=== PATIENT | female | born 1975 | race Caucasian/White ===

== ENCOUNTER 2018-09-06 17:26 | Inpatient (IN) | payer MEDICAID ==
[~2018-09-06] VITALS: Ht 157.5 cm; Wt 75.0 kg
[2018-09-06] MEDS ORDERED: PREN-93 PO (17:43)
[2018-09-06 17:44] VITALS: BP 143/79; PULSE 106; RESP 18; Ht 157.5 cm; Wt 75.0 kg
--- NOTE | 2018-09-06 17:50 | TRIAGE ---
OB Triage Datetime Report Generated by CPN: 09/06/2018 17:50 Datetime: 09/06/2018 17:47 Vaginal Exam Dilatation (cms): 3.0 Effacement (%): 70 Station: -2 Exam By: SINTIA Vaginal Bleeding: None Cervix, Consistency: Soft Cervix, Position: Midposition Datetime: 09/06/2018 17:38 Assessment Type: Triage Maternal Assessment Level of Consciousness: Fully Conscious DTR's/Clonus: DTRs 2+; No Clonus Headache: Denies Blurred Vision: No Respiratory Effort: Unlabored; Regular Rhythm; Equal Expansion Breath Sounds, Left: Clear and Equal Breath Sounds, Right: Clear and Equal Nausea/Vomiting: Denies RUQ Epigastric Pain: Denies Lower Extremities Edema: None Degree: None Upper Extremities Edema: None Degree: None Facial Edema: None Fall Risk Assessment History of Falling: (0) No Secondary Diagnosis: (0) No Ambulatory Aid: (0) Bedrest/Nurse Assist IV Therapy: (0) No Gait: (0) Normal/Bedrest/Immobile Mental Status: (0) Oriented to Own Ability Fall Score: 0 Fall Risk Score Definition: No Risk: No action required Datetime: 09/06/2018 17:35 Time of Arrival: 09/06/2018 17:23 EGA: 39.0 Arrived By: Ambulatory Arrived From: Home Chief Complaint: PT. HERE FOR C/O UC'S Movement: Present Contractions: Irregular Rupture of Membranes: Denies Vaginal Bleeding: None Vaginal Discharge: Denies Recent Sexual Intercouse: Denies Abdominal Trauma: Not Applicable Patient Complaints: Contractions; Cramping; Back Pain Time Provider Notified: 09/06/2018 17:40 Provider Notified: HADADIAN Initial Plan: EFM/SVE Datetime: 09/06/2018 17:34 Labor Evaluation Monitor Mode: External Heart Rate Monitor Mode: External US
[2018-09-06] MEDS ORDERED: LACTATED RINGER'S 1,000 ML IV SCH (17:51)
[2018-09-06] MEDS ORDERED: METHYLERGONOVINE 0.2 MG INJ IM PRN ×2 (18:00→23:30)
[2018-09-06] MEDS ORDERED: MISOPROSTOL 200 MCG TAB PR PRN ×2 (18:00→23:30)
[2018-09-06] MEDS ORDERED: OXYTOCIN 30 UNITS/LR 500 ML IV SCH (18:00)
[2018-09-06] MEDS ORDERED: IBUPROFEN 600 MG TAB PO PRN (18:00)
[2018-09-06] MEDS ORDERED: CARBOPROST 250 MCG INJ IM PRN ×2 (18:00→23:30)
[2018-09-06] MEDS ORDERED: OXYTOCIN 30 UNITS/LR 500 ML IV PRN ×2 (18:00→23:30)
[2018-09-06] MEDS ORDERED: LIDOCAINE 1% (MPF) 30 ML INJ INJ PRN (18:00)
[2018-09-06] MEDS ORDERED: BUTORPHANOL 2 MG INJ IV PRN (18:00)
--- NOTE | 2018-09-06 20:09 | HP ---
Date/Time of Note Date/Time of Note DATE: 09/06/18 TIME: 20:07 OB - History Hx of Present Free Text/Dictation 43 years old with single intrauterine at 39 weeks with a MARCIA of 11/11/2018 complaining of uterine contractions. She states good movement. She denies nausea, vomiting, shortness of breath, chest pain, headache, visual changes, vaginal bleeding or LOF. Chief Complaint: Uterine contractions Estimated Due Date: November 11, 2018 : 6 Para: 3 Spontaneous : 2 Therapeutic : 0 Care: Good Care Ultrasounds: Normal mid trimester US Obstetrical Complications: None Medical Complications: None Past Family/Social History * Past Medical, Surgical, Family and Obstetric Histories reviewed from [facility]. Blood Type: O+ Rubella: immune RPR/VDRL: Negative GBS Status: Negative HBsAG: Negative OB Admission Exam Vital Signs Vital Signs Vital Signs Date Temp Pulse Resp B/P (MAP) Pulse Ox O2 O2 Flow FiO2 Time Delivery Rate 09/06/18 97.7 106 18 143/79 Room Air 17:44 (100) Physical Exam HEENT: WNL Heart: Rhythm Normal Lungs: Clear Abdomen: WNL Extremities: Normal Cervical Dilatation: 4cm Effacement: 75% Station: -2 Membranes: Intact Heart Rate: 130's Accelerations: Accelerations Present Decelerations: No Decelerations Varibility: Moderate Contractions on Admission: < 5 Minutes Apart Intensity: Moderate Last 72 hours Lab Results CBC & BMP 09/06/18 18:35 OB Assessment/Plan Other plan: 43-year-old 6 para 3023 at 29 weeks in active labor - FHR: No sign of metabolic acidosis- Category I - Continuous EFM, toco - CBC, blood type and screen - Analgesia options with R/B/A discussed in detail with patient - Epidural per patient request - Please see the orders - O+/Rubella: Immune - GBS: Negative Admission, procedures, expectations, risks and possible complications have been discussed in detail with the patient. Risk of vaginal delivery including but not limited to bleeding, infection, cervical laceration, placental retention, injury to fetus, blood transfusion, blood transfusion related infection, risk of anesthesia, adhesion, cervical laceration, episiotomy/laceration, possible ce sarean delivery with risk of bleeding, infection, injury to other organs (bowel, bladder, ureter, vessels, nerves), injury to fetus, blood transfusion, blood transfusion related infection, risk of anesthesia, scar and hernia formation, needs for future , removal of uterus or any other indicated surgery discussed with the patient. She expressed understanding and repeats the risks. All of her questions were answered. She signed the informed consent. PHYSICIAN'S VERIFICATION OF INFORMED CONSENT The patient and her counseled regarding the procedure, its indications, risks, potential complications and alternatives and any questions were answered. Consent was obtained. PLANNED PROCEDURE/TREATMENT: Vaginal delivery, episiotomy, repair of laceration possible delivery SUZANNE AVINA Sep 06, 2018 20:09
--- NOTE | 2018-09-06 20:11 | LDN ---
Date/Time of Note Date/Time of Note DATE: 09/06/18 TIME: 20:09 Delivery Summary 43-year-old 0-3 at 39 weeks delivered a viable female over intact perineum. Nose and mouth suctioned. The rest of body delivered. Cord clamped and cut after stopping for sedation. Baby given to the nurse. Placenta delivered spontaneously and intact with three-vessel cord. Patient tolerated procedure well Time of delivery 19:54 Weight 3255 g - 7 pounds 3 ounces 7 at 1 minute and 9 at 5 minutes EBL 150 mm Weeks of Gestation 39 weeks Placenta Delivered: Spontaneously Meconium: none Episiotomy: No Estimated blood loss: 150 Sponge & Needle done & correct: Yes All needle counts correct: Yes Any foreign bodies felt in the: No Delivery Information Sex Sex: female Apgars 1 Minute: 7 5 Minute: 9 10 Minute: 10 Suctioning Nose & mouth suctioned at lori: Yes Umbilical Cord Umbilical cord with: 3 Vessels Cord presentations: no nuchal cord Cord Blood was obtained: Yes Mother & Baby Disposition Disposition Mom & Baby to Maternity; Good: Yes SUZANNE AVINA Sep 06, 2018 20:11
[2018-09-06] MEDS: OXYTOCIN 30 UNITS/LR 500 ML IV SCH (20:30)
[2018-09-06 22:50] VITALS: BP 144/62; PULSE 67
[2018-09-06 23:00] VITALS: BP 144/62; PULSE 67; RESP 18
[2018-09-06] MEDS: DEXTROSE 5%-LR 1,000 ML IV SCH (23:15)
[2018-09-06] MEDS: LACTATED RINGER'S 1,000 ML IV* SCH (23:15)
[2018-09-06 23:30] VITALS: BP 124/50; PULSE 72; RESP 18
[2018-09-06] MEDS ORDERED: DIBUCAINE 1% 30 GM OINT TOP PRN (23:30)
[2018-09-06] MEDS ORDERED: ONDANSETRON 4 MG INJ IV PRN (23:30)
[2018-09-06] MEDS ORDERED: BENZOCAINE 20% 56 ML SPRAY TOP PRN (23:30)
[2018-09-06] MEDS ORDERED: ACETAMINOPHEN 325 MG TAB PO PRN (23:30)
[2018-09-06] MEDS ORDERED: LANOLIN HPA 1 PKT TOP PRN (23:30)
[2018-09-06] MEDS ORDERED: OXYCODONE/ASPIRIN (4.88/325) TAB PO PRN (23:30)
[2018-09-06] MEDS ORDERED: WITCH HAZEL/GLYCERIN PAD PR PRN (23:30)
[2018-09-06] MEDS ORDERED: SENNA/DOCUSATE NA (8.6MG/50MG) TAB PO PRN (23:30)
[2018-09-06] MEDS ORDERED: ZOLPIDEM 5 MG TAB PO PRN (23:30)
[2018-09-06] MEDS ORDERED: DIPHENHYDRAMINE 50 MG INJ IV PRN (23:30)
[2018-09-06] MEDS: IBUPROFEN 600 MG TAB PO SCH (23:56)
[2018-09-07] MEDS: OXYTOCIN 30 UNITS/LR 500 ML IV SCH (00:26)
[2018-09-07 04:20] VITALS: BP 118/65; PULSE 69; RESP 16
[2018-09-07] MEDS: IBUPROFEN 600 MG TAB PO SCH ×3 (06:06→17:58)
[2018-09-07] MEDS: DEXTROSE 5%-LR 1,000 ML IV SCH ×2 (07:30→15:15)
[2018-09-07] MEDS: LACTATED RINGER'S 1,000 ML IV* SCH ×2 (07:30→15:15)
[2018-09-07 08:40] VITALS: BP 102/58; PULSE 66; RESP 18
[2018-09-07 12:03] VITALS: BP 103/56; PULSE 68; RESP 18
[2018-09-07 15:10] VITALS: BP 106/55; PULSE 84; RESP 16
--- NOTE | 2018-09-07 15:26 | PN ---
Date/Time of Note Date/Time of Note DATE: 09/07/18 TIME: 15:23 OB Subjective Subjective Subjective PPD# 1 Patient is doing well. She denies nausea, vomiting, shortness of breath, chest pain, headache. She has been ambulating without difficulty, tolerating regular diet. Pain is well controlled on current medications OB Objective Objective Objective Vital Signs Date Temp Pulse Resp B/P (MAP) Pulse Ox O2 O2 Flow FiO2 Time Delivery Rate 09/07/18 98.2 66 18 102/58 Room Air 08:40 (73) General: AAO X 3, comfortable, NAD, appropriate mood and affect. ABD: +BS. Soft, non-tender. Uterus 2 cm below umbilicus Flank: No CVA tenderness (B/L) LE: Mild edema. No clubbing, cyanosis, thigh or calf tenderness (B/L). Homans 'sign is negative Laboratory Tests Test 09/06/18 18:35 09/07/18 07:41 White Blood Count 11.3 10^3/ul 12.1 10^3/ul Red Blood Count 4.25 10^6/ul 3.77 10^6/ul Hemoglobin 12.9 g/dl 11.6 g/dl Hematocrit 39.2 % 35.1 % Mean Corpuscular Volume 92.2 fl 93.1 fl Mean Corpuscular Hemoglobin 30.4 pg 30.8 pg Mean Corpuscular Hemoglobin Concent 32.9 g/dl 33.0 g/dl Red Cell Distribution Width 14.9 % 15.1 % Platelet Count 212 10^3/UL 181 10^3/UL Mean Platelet Volume 12.1 fl 12.2 fl Immature Granulocytes % 0.700 % 0.700 % Neutrophils % 73.8 % 74.5 % Lymphocytes % 17.6 % 14.3 % Monocytes % 7.4 % 10.0 % Eosinophils % 0.2 % 0.3 % Basophils % 0.3 % 0.2 % Nucleated Red Blood Cells % 0.0 /100WBC 0.0 /100WBC Immature Granulocytes # 0.080 10^3/ul 0.080 10^3/ul Neutrophils # 8.4 10^3/ul 9.0 10^3/ul Lymphocytes # 2.0 10^3/ul 1.7 10^3/ul Monocytes # 0.8 10^3/ul 1.2 10^3/ul Eosinophils # 0.0 10^3/ul 0.0 10^3/ul Basophils # 0.0 10^3/ul 0.0 10^3/ul Nucleated Red Blood Cells # 0.0 10^3/ul 0.0 10^3/ul Prothrombin Time 12.5 Sec Prothrombin Time Ratio 1.0 INR International Normalized Ratio 0.92 Activated Partial Thromboplast Time 28.6 Sec Rapid Plasma Reagin NONREACTIVE Hepatitis B Surface Antigen NEGATIVE OB Assessment/Plan Other plan: 43-year-old s/p normal vaginal delivery at 39 weeks. PPD#1 - AF, VSS - Baby is doing well, at bed side. She is bonding well - Contraception methods with R/B/A/FR discussed - Continue care - Discharge home tomorrow - Rx and instruction given - Follow up in 2 and 6 weeks at clinic SUZANNE AVINA Sep 07, 2018 15:26
--- NOTE | 2018-09-07 15:27 | DS ---
Date/Time of Note Date/Time of Note DATE: 09/07/18 TIME: 15:26 Obstetrical Discharge Record Final Diagnosis Final Diagnosis: Term delivered Other Final Diagnosis 43-year-old s/p normal vaginal delivery at 39 weeks. PPD#1. She is ambulating and tolerating regular diet. She is voiding without difficulty. Pain is controlled on current medication. - AF, VSS - Baby is doing well, at bed side. She is bonding well - Contraception methods with R/B/A/FR discussed - Continue care - Discharge home tomorrow - Rx and instruction given - Follow up in 2 and 6 weeks at clinic Vaginal Delivery Obstetrical Delivery: Spontaneous Complications Augmentation: No Induction: No Condition on Discharge Physical Assessment Last Vitals: Vital Signs Date Temp Pulse Resp B/P (MAP) Pulse Ox O2 O2 Flow FiO2 Time Delivery Rate 09/07/18 98.2 66 18 102/58 Room Air 08:40 (73) Voiding: Yes Bowel Movement: Yes Breast: Soft, non-tender Fundus: Firm Calf Tenderness: No Patient Condition: Stable SUZANNE AVINA Sep 07, 2018 15:27
[2018-09-07 19:55] VITALS: BP 130/57; PULSE 63; RESP 18
[2018-09-08] MEDS: IBUPROFEN 600 MG TAB PO SCH ×3 (00:23→12:00)
[2018-09-08 04:20] VITALS: BP 125/57; PULSE 66; RESP 16
[2018-09-08 08:30] VITALS: BP 123/70; PULSE 63
[2018-09-08] MEDS ORDERED: DIPHTH/TET/ACEL PERTUSS (ADULT) 0.5 ML VIAL IM* ONE (09:00)
[2018-09-08] MEDS ORDERED: MEASLES,MUMPS,RUBELLA VACCINE INJ SC* ONE (09:00)
[2018-09-08 11:39] VITALS: BP 124/57; PULSE 74; RESP 18
== END 2018-09-08 12:20 | disposition home or self-care (01) | DRG 807 ==
LOC: OBT 17:26 → L-D 17:27 → OBT 17:53 → L-D 17:53 → PP1 22:29
PROVIDERS: ADMIT Obstetrics & Gynecology; ATTEND Obstetrics & Gynecology
PROC: 10E0XZZ Delivery of Products of Conception, External Approach (ICD-10-PCS; principal; 2018-09-06)
DX: O80 Encounter for full-term uncomplicated delivery (principal); Z37.0 Single live birth; Z3A.39 39 weeks gestation of pregnancy
CPT/HCPCS: 85025; 85610; 85730; 86592; 86900; 86901; 87340; 99464; G0463; J2210; J2590; J7120; J7121